=== PATIENT | male | born 1945 | race Caucasian/White ===

== ENCOUNTER → 2020-09-02 | Outpatient (CLI) | payer MEDICARE, BC ==
[~2020-09-02] MED LIST: ASPI81EC PO; GLIP2.5ER PO; METF500 PO
== END | disposition home or self-care (01) ==
LOC: LAB 17:11 → LAB SHORT 17:11
DX: E11.9 Type 2 diabetes mellitus without complications (principal)
CPT/HCPCS: 82043

== ENCOUNTER → 2021-09-01 | Outpatient (CLI) | payer MEDICARE, BC | END | disposition home or self-care (01) | LOC: LAB SHORT 08:38 → LAB 08:38 | DX: E11.9 Type 2 diabetes mellitus without complications (principal) | CPT/HCPCS: 82043 ==

== ENCOUNTER 2023-03-05 19:15 | Emergency (ER) | payer MEDICARE, BC ==
[~2023-03-05] VITALS: Ht 172.7 cm; Wt 105.7 kg
[2023-03-05 20:45] VITALS: BP 141/69
== END 2023-03-05 21:05 | disposition home or self-care (01) ==
LOC: ER 19:15
DX: U07.1 COVID-19 (principal); Z79.84 Long term (current) use of oral hypoglycemic drugs; Z79.82 Long term (current) use of aspirin
CPT/HCPCS: 99282

== ENCOUNTER 2024-08-09 08:14 | Inpatient (IN) | payer MEDICARE ==
[~2024-08-09] VITALS: Ht 172.7 cm; Wt 138.7 kg
[2024-08-09] MEDS ORDERED: GLIMEPIRIDE2 M2 PO (08:54)
[2024-08-09] MEDS ORDERED: DAPAGLIFLOZIN10 MG PO (08:54)
[2024-08-09] MEDS ORDERED: METFORMIN HCL500 M2 PO (08:55)
[2024-08-09 09:28] LABS: BASOPHILS ABSOLUTE AUTO 0.03 K/mm3 (0.00-0.23); BASOPHILS PERCENT AUTO 0 % (0-2); EOSINOPHILS ABSOLUTE AUTO 0.22 K/mm3 (0.00-0.68); EOSINOPHILS PERCENT AUTO 3 % (0-6); Hemoglobin 14.9 g/dL (13.5-17.5); IMMATURE GRAN ABSOLUTE AUTO 0.02 K/mm3 (0.00-0.10); IMMATURE GRAN PERCENT AUTO 0 % (0-1); LYMPHOCYTES ABSOLUTE AUTO 1.56 K/mm3 (0.84-5.20); LYMPHOCYTES PERCENT AUTO 21 % (21-46); MONOCYTES ABSOLUTE AUTO 0.72 K/mm3 (0.16-1.47); MONOCYTES PERCENT AUTO 10 % (4-13); Mean Corpuscular HGB 31.4 pg (26.0-34.0); Mean Corpuscular HGB Conc 36.3 g/dL (31.5-36.5); Mean Corpuscular Volume 87 fL (80-100); Mean Platelet Volume 8.9 fL (9.1-12.4); NEUTROPHILS ABSOLUTE AUTO 4.99 K/mm3 (1.96-9.15); NEUTROPHILS PERCENT AUTO 66 % (41-73); Platelet Count 204 K/mm3 (150-400); RDW Coefficient Variation 12.5 % (11.7-14.2); RDW Standard Deviation 39.9 fL (35.1-46.3); Red Blood Cell Count 4.74 M/mm3 (4.30-5.90); White Blood Cell Count 7.54 K/mm3 (4.00-11.30)
[2024-08-09 09:35] LABS: Albumin, Blood 3.5 g/dL (3.4-5.0); Bilirubin, Total 0.9 mg/dL (0.1-1.0); Bun/Creatinine Ratio 25.2 (12.0-20.0); Calcium, Blood 9.3 mg/dL (8.5-10.1); Creatinine, Blood 0.71 mg/dL (0.60-1.20); Globulin, Blood 3.6 g/dL (2.2-4.0); Potassium, Blood 3.8 mmol/L (3.5-5.5); Total Protein, Blood 7.1 g/dL (6.4-8.2)
[2024-08-09 10:10] LABS: Influenza A, PCR NEGATIVE (NEGATIVE); Influenza B, PCR NEGATIVE (NEGATIVE); Resp Syncytial Virus, PCR NEGATIVE (NEGATIVE); SARS-Cov-2 (COVID-19) PCR, MMC NEGATIVE (NEGATIVE)
[2024-08-09 10:19] LABS: Anti-Xa UFH, PHA Monitoring <0.10 IU/mL; International Normalized Ratio 0.98; Prothrombin Time Results 10.5 Sec (9.7-11.5)
[2024-08-09] MEDS ORDERED: Dose Adjust by Pharmacy XX STA ×2 (10:43→17:27)
[2024-08-09] MEDS ORDERED: Heparin Sodium 5000 Units/ML 1ML MDV IV ONE (10:45)
[2024-08-09] MEDS ORDERED: Heparin Sodium,Porcine/0.5 NS 500 ML IV SCH (10:45)
[2024-08-09] MEDS ORDERED: Acetaminophen 325 MG TABLET PO PRN (11:25)
[2024-08-09] MEDS ORDERED: FLU VACC TS2024-25(6MOS UP)/PF 45 MCG/0.5 ML SYRINGE IM SCH (11:25)
[2024-08-09] MEDS ORDERED: Polyethylene Glycol 3350 17 gm PO PRN (11:30)
[2024-08-09] MEDS ORDERED: Insulin Human Lispro 100 Units/ML 3ML Syringe SC SCH (11:30)
[2024-08-09] MEDS ORDERED: Prochlorperazine Edisylate 10 mg Vial IV PRN (11:30)
[2024-08-09] MEDS ORDERED: Atorvastatin 40 MG Tab PO SCH (12:00)
[2024-08-09 14:57] VITALS: BP 138/50
[2024-08-09 17:21] VITALS: BP 135/55
--- NOTE | 2024-08-09 17:27 | NUR ---
ADMIT NOTE/ SHIFT SUMMARY: PT ARRIVED TO ROOM PCU10 FROM ED AT APPROX 1429. PT ARRIVED VIA GURNEY AND WAS ABLE TO TRANSFER TO BED WITH SBA. HEPARIN INFUSING ON ARRIVAL AND CONTINUES AT THIS TIME. PT HAS DENIED ANY CP, PRESSURE, TIGHTNESS OR SOB SINCE ARRIVAL. VSS. MAP >65. PT BECOMING ADGITATED AND STATING THAT HE WANTS TO GO HOME AROUND 1720. CALLED AND STATED THAT SHE WILL COME BACK TO THE HOSPITAL. PT COMPLIANT WITH CARE AT THIS TIME BUT IS STATING THAT HE IS NOT COMFORTABLE HERE AND HE DOES NOT BELIEVE THAT THERE IS SOMETHING GOING ON WITH HIS HEART. NO OTHER SIGNIFICANT EVENTS HAVE HAPPENED SINCE ARRIVAL TO THIS UNIT. WILL CONTINUE TO CARE FOR PT TILL END OF SHIFT.
[2024-08-09 20:16] VITALS: BP 125/71
[2024-08-09] MEDS ORDERED: Docusate Sodium/Senna 1 Tab PO SCH (21:00)
[2024-08-09 23:58] VITALS: BP 125/83
[2024-08-10] VITALS (15 sets, daily range): BP systolic 97–148; BP diastolic 51–101
[2024-08-10] MEDS ORDERED: Dose Adjust by Pharmacy XX STA ×2 (00:32→06:15)
--- NOTE | 2024-08-10 04:51 | NUR ---
ALERT AND ORIENTED X 3. HEART RATE 98, RYTHM IRREGULAR. DENIES CHEST PAIN,SOB. MAP > 65. HEPARIN DRIP INFUSING AT THIS TIME. NO SIGNS OF BLEEDING NOTED. COMPLAINDED OF MILD EAR DISCOMFORT STATED "I HAD AN EAR INFECTION A WEEK AGO" PRN TYLENOL GIVEN AND PATIENT REPORTED RELIEF FROM PAIN. PATIENT SPOUSE AT BEDSIDE. NPO STATUS FOR AM PROCEDURE.
[2024-08-10 05:13] LABS: Hematocrit 38.5 % (37.0-53.0); Hemoglobin 14.1 g/dL (13.5-17.5); Mean Corpuscular HGB 31.2 pg (26.0-34.0); Mean Corpuscular HGB Conc 36.6 g/dL (31.5-36.5); Mean Corpuscular Volume 85 fL (80-100); Mean Platelet Volume 8.7 fL (9.1-12.4); Platelet Count 170 K/mm3 (150-400); RDW Coefficient Variation 12.2 % (11.7-14.2); RDW Standard Deviation 37.8 fL (35.1-46.3); Red Blood Cell Count 4.52 M/mm3 (4.30-5.90); White Blood Cell Count 7.34 K/mm3 (4.00-11.30)
[2024-08-10 05:52] LABS: Magnesium, Blood 1.6 mg/dL (1.6-2.4)
[2024-08-10 05:55] LABS: Albumin, Blood 3.2 g/dL (3.4-5.0); Anion Gap 14 mmol/L (3-11); Blood Urea Nitrogen 12 mg/dL (8-24); Bun/Creatinine Ratio 19.4 (12.0-20.0); CO2, Blood 23 mmol/L (21-32); Chloride, Blood 101 mmol/L (98-108); Creatinine, Blood 0.62 mg/dL (0.60-1.20); Glomerular Filtration Rate 97 (60-); Glucose, Blood 147 mg/dL (70-99); Phosphorus, Blood 3.5 mg/dL (2.5-4.9); Potassium, Blood 3.5 mmol/L (3.5-5.5); Sodium, Blood 134 mmol/L (136-145)
[2024-08-10] MEDS ORDERED: Verapamil HCL 2.5 MG/ML 2ML Injection ONE (07:24)
[2024-08-10] MEDS ORDERED: NS 250 ML IV ONE (07:25)
[2024-08-10] MEDS ORDERED: NS 1,000 ML IV ONE ×2 (07:25→08:01)
[2024-08-10] MEDS ORDERED: Heparin Sodium 1000 Units/ML 10ML MDV ONE ×2 (07:25→08:11)
[2024-08-10] MEDS ORDERED: Nitroglycerin 2 MG/20 ML BTL ONE (07:25)
--- NOTE | 2024-08-10 07:59 | NUR ---
PT TAKE TO HEART CENTER, WILL AWAIT RETURN.
[2024-08-10] MEDS ORDERED: FentaNYL Citrate 50 MCG/ML 2 ML Injection ONE (08:01)
[2024-08-10] MEDS ORDERED: Midazolam HCl 1MG / ML 2ML Vial ONE (08:01)
[2024-08-10] MEDS ORDERED: Aspirin 81 MG Chew PO SCH (09:00)
--- NOTE | 2024-08-10 09:55 | NUR ---
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 R wrist with TR band in place. NO bleeding, oozing, swelling or hematoma noted. PT and were given verbal instructions about activity restriction with R wrist. Denies numbness or tingling. Pt denies pain or SOB. VSS. Dr. Wild in room to go over [employer]room found[employer] laborer results. Plan to possible transfer for open heart. and Pt agree with this plan. Call light in reach. WIll continue to monitor.
--- NOTE | 2024-08-10 11:53 | NUR ---
UPDATE: Pt resting in room. at bedside. Bed available at [facility] and transportation has been arranged. VSS. TR band recovery has started with 4cc air removed. NO signs of bleeding or hematoma noted. Will continue to monitor and recover TR band.
--- NOTE | 2024-08-10 12:19 | NUR ---
discharge/COBRA TR band was recovered, no hematoma, swelling or oozing noted. VSS. Pt left via ambulance for [facility]. Stable at time of transfer. Report given to Ethel at [facility].
== END 2024-08-10 12:28 | disposition short-term general hospital (02) | DRG 282 ==
LOC: ER 08:14 → PCU 11:21 → ERHOLD 11:21 → ER 14:05 → ERHOLD 14:05 → PCU 14:43
PROVIDERS: Student in an Organized Health Care Education/Training Program; ADMIT Internal Medicine
PROC: 4A023N7 Measurement of Cardiac Sampling and Pressure, Left Heart, Percutaneous Approach (ICD-10-PCS; principal; 2024-08-10)
PROC: B2111ZZ Fluoroscopy of Multiple Coronary Arteries using Low Osmolar Contrast (ICD-10-PCS; 2024-08-10)
PROC: B2111ZZ Fluoroscopy of Multiple Coronary Arteries using Low Osmolar Contrast (ICD-10-PCS; 2024-08-10)
PROC: 4A023N7 Measurement of Cardiac Sampling and Pressure, Left Heart, Percutaneous Approach (ICD-10-PCS; 2024-08-10)
PROC: 4A033BC Measurement of Arterial Pressure, Coronary, Percutaneous Approach (ICD-10-PCS; 2024-08-10)
DX: I21.4 Non-ST elevation (NSTEMI) myocardial infarction (principal); E11.9 Type 2 diabetes mellitus without complications; I25.10 Atherosclerotic heart disease of native coronary artery without angina pectoris; Z79.84 Long term (current) use of oral hypoglycemic drugs; Z79.899 Other long term (current) drug therapy; I24.9 Acute ischemic heart disease, unspecified; Z90.49 Acquired absence of other specified parts of digestive tract; Z87.891 Personal history of nicotine dependence; I49.1 Atrial premature depolarization
CPT/HCPCS: 0241U; 36415; 71046; 76937; 80053; 80069; 82947; 83036; 83735; 83880; 84443; 84484; 85025; 85027; 85347; 85520; 85610; 93005; 93010; 93306; 93454; 93571; 96365; 99152; 99153; 99285-25; A9270; C1769; C1876; C1887; C1894; J1644; J2250; J3010; J7030; J7050; Q9967